=== PATIENT | male | born 1955 | race Caucasian/White ===

== ENCOUNTER 2018-09-21 17:59 | Emergency (ER) | payer OTHER ==
[~2018-09-21] VITALS: Ht 188 cm; Wt 109.3 kg
[~2018-09-21 17:59] MED LIST: ASPI-630 PO; LOSA25TA PO; NEBI5TAB2 PO; diavan PO
--- NOTE | 2018-09-21 18:04 | ED.ADGEN ---
Past History Past Medical History: Hypertension, Other Past Surgical History: Other Alcohol Use: Rarely Drug Use: None Adult General Chief Complaint Chief Complaint ".. I was out in the yard a little today.. and I ve had this before... it is some kind of allergic reaction... I usually need a course of steroids..." HPI HPI Patient is a 63 year old male who presents with above hx and complaints allergy reaction after working in yards. Pt. has acute periorbital edema. Pt. does not remember any specific allergen getting into right eye. No visual changes. But does have significant purulent or swelling and some areas of skin appears to be developing hives. Normally follows at [place] for care. Patient states in the past when he developed these type allergies he usually required steroids. Patient has history of recent travel. No specific ill contacts. No history immunosuppression. Review of Systems Review of Systems Constitutional: Denies fever or chills [] Eyes: Denies change in visual acuity, redness, or eye pain []periorbital swelling left HENT: Denies nasal congestion or sore throat [] Respiratory: Denies cough or shortness of breath [] Cardiovascular: No additional information not addressed in HPI [] GI: Denies abdominal pain, nausea, vomiting, bloody stools or diarrhea [] : Denies dysuria or hematuria [] Musculoskeletal: Denies back pain or joint pain [] Integument: Denies rash or skin lesions [] Neurologic: Denies headache, focal weakness or sensory changes [] Endocrine: Denies polyuria or polydipsia [] All other systems were reviewed and found to be within normal limits, except as documented in this note. Family History Family History Noncontributory Current Medications Current Medications Current Medications Medications (Trade) Dose Ordered Sig/[place] Start Time Stop Time Status Last Admin Dose Admin Famotidine (Pepcid) 20 mg 1X ONCE 09/21/18 18:30 09/21/18 18:31 DC 09/21/18 18:38 20 MG Methylprednisolone Acetate (DEPO-Medrol IM) 40 mg 1X ONCE 09/21/18 18:30 09/21/18 18:31 DC 09/21/18 18:41 40 MG Allergies Allergies Allergies Coded Allergies Type Severity Reaction Last Updated Verified No Known Drug Allergies 03/06/14 No Physical Exam Physical Exam Constitutional: Well developed, well nourished, no acute distress, non-toxic appearance. [] HENT: Normocephalic, atraumatic, bilateral external ears normal, oropharynx moist, no oral exudates, nose normal. [] Eyes: PERRLA, EOMI, conjunctiva normal, no discharge. []Periorbital swelling lef t eye- hive like edema and erythema Neck: Normal range of motion, no tenderness, supple, no stridor. [] Cardiovascular:Heart rate regular rhythm, no murmur [] Lungs & Thorax: Bilateral breath sounds clear to auscultation [] Abdomen: Bowel sounds normal, soft, no tenderness, no masses, no pulsatile masses. [] Skin: Warm, dry, no erythema, no rash. [] Back: No tenderness, no CVA tenderness. [] Extremities: No tenderness, no cyanosis, no clubbing, ROM intact, no edema. [] Neurologic: Alert and oriented X 3, normal motor function, normal sensory function, no focal deficits noted. [] Psychologic: Affect normal, judgement normal, mood normal. [] Current Patient Data Vital Signs Vital Signs Date Time Temp Pulse Resp B/P (MAP) Pulse Ox O2 Delivery O2 Flow Rate FiO2 09/21/18 18:46 50 18 146/107 (120) 98 Room Air 09/21/18 18:17 97.8 EKG EKG [] Radiology/Procedures Radiology/Procedures [] Course & Med Decision Making Course & Med Decision Making Pertinent Labs and Imaging studies reviewed. (See chart for details). Use ice packs. Patient to take Benadryl 25-50 mg 4 times a day. Patient take Zantac twice a day. Patient patient attempted to find the allergy or caused swelling. Patient follow-up primary care. Patient return if any concerns. [] Final Impression Final Impression 1. Lt. Periorbital Edema- allergic reaction[] Dragon Disclaimer Dragon Disclaimer This electronic medical record was generated, in whole or in part, using a voice recognition dictation system. Discharge Summary Visit Information Final Diagnosis Problems Medical Problems: (1) Allergic reaction Status: Acute Brief Hospital Course Allergies Allergies Coded Allergies Type Severity Reaction Last Updated Verified No Known Drug Allergies 03/06/14 No Vital Signs Vital Signs Date Time Temp Pulse Resp B/P (MAP) Pulse Ox O2 Delivery O2 Flow Rate FiO2 09/21/18 18:46 50 18 146/107 (120) 98 Room Air 09/21/18 18:17 97.8 Brief Hospital Course Mr. Carmen is a 63 old male who presented with Lt periorbital edema, hives. Discharge Information Condition at Discharge: Stable Disposition/Orders: D/C to Home Dischare Medications Current Medications Famotidine (Pepcid) 20 mg 1X ONCE PO Last administered on 09/21/18at 18:38; Admin Dose 20 MG; Start 09/21/18 at 18:30; Stop 09/21/18 at 18:31; Status DC Methylprednisolone Acetate (DEPO-Medrol IM) 40 mg 1X ONCE IM Last administered on 09/21/18at 18:41; Admin Dose 40 MG; Start 09/21/18 at 18:30; Stop 09/21/18 at 18:31; Status DC Active Scripts Active Zantac (Ranitidine Hcl) 300 Mg Tablet 300 Mg PO BID 10 Days Benadryl (Diphenhydramine Hcl) 25 Mg Capsule 25 Mg PO QID Reported [diavan] 320 Mg PO DAILY Bystolic (Nebivolol Hcl) 5 Mg Tablet 1 Tab PO DAILY Aspirin 81 Mg Tab.chew 1 Tab PO DAILY Dragon Disclaimer This chart was dictated in whole or in part using Voice Recognition software in a busy, high-work load, and often noisy Emergency Department environment. It may contain unintended and wholly unrecognized errors or omissions. KAYLEE STARK MD Sep 21, 2018 18:04
[2018-09-21] MEDS ORDERED: DIPH25CA58 PO (18:22)
[2018-09-21] MEDS ORDERED: RANI300T3 PO (18:22)
[2018-09-21] MEDS ORDERED: methylPREDNISolone ACETATE 40 MG/ML VIAL. IM ONE (18:30)
[2018-09-21] MEDS ORDERED: FAMOTIDINE 20 MG TABLET PO ONE (18:30)
[2018-09-21 18:46] VITALS: BP 146/107
== END 2018-09-21 18:46 | disposition home or self-care (01) ==
LOC: ER 17:59
DX: T78.40XA Allergy, unspecified, initial encounter (principal); H05.222 Edema of left orbit; I10 Essential (primary) hypertension; X58.XXXA Exposure to other specified factors, initial encounter
CPT/HCPCS: 96372; 99283; J1030

== ENCOUNTER → 2018-12-20 | Outpatient (CLI) | payer OTHER ==
[~2018-12-20] MED LIST changes: +DIPH25CA58 PO; +IOHEXOL 240 MG/ML 50ML VIAL. PO ONE; +IOHEXOL 300 MG/ML 75 ML VIAL. IV ONE; +RANI300T3 PO
--- NOTE | 2018-12-20 10:59 | RAD ---
PQRS Compliance Statement: One or more of the following individualized dose reduction techniques were utilized for this examination: 1. Automated exposure control 2. Adjustment of the mA and/or kV according to patient size 3. Use of iterative reconstruction technique CT abdomen/pelvis without contrast 12/20/2018 9:19 AM INDICATION: Renal mass COMPARISON: CT chest 03/06/2014 TECHNIQUE: Multiple axial CT images of the abdomen and pelvis were obtained with intravenous contrast. Coronal and sagittal reformats are provided. FINDINGS: There is a 9.5 mm solid noncalcified pulmonary nodule in the medial left lower lobe (series 2, image 12). Heart size is within normal limits. There is diffuse hepatic steatosis. Focal area of high attenuation along the gallbladder fossa may represent an area of focal fatty sparing. Spleen, bilateral adrenal glands and pancreas are normal in appearance. Cholelithiasis. Portal venous system is patent. Normal aorta is normal in course and caliber with mild calcified atheromatous plaque. No pathologically enlarged abdominal or pelvic lymph nodes are identified. There is a small fat-containing right inguinal hernia containing the appendix. Appendix is not inflamed. Appendicolith is noted in the distal tip measuring 4 mm. Small amount of fluid is noted in the left inguinal canal. Small and large bowel are normal in caliber. No bowel obstruction or inflammation. Opacified bowel loops since her normal mucosal fold pattern. The kidneys enhance symmetrically. There is no suspicious renal mass. There is no hydronephrosis. There are no suspected calculi within the kidneys, ureters or urinary bladder. There is an 18 mm simple cyst in the lateral interpolar left kidney. Additional 6 mm hypodensity is too small to characterize. Renal collecting systems appear intact. Urinary bladder is within normal limits given degree of distention. Prostate is mildly enlarged measuring 5.9 x 4.2 cm in transaxial dimensions. No suspicious osseous abnormality is identified. Mild to moderate degenerative disc disease noted at L4-L5 and L5-S1. IMPRESSION: 1. There is a 9.5 mm solid noncalcified pulmonary nodule in the medial left lower lobe. This finding is indeterminate and 3 month follow-up chest CT is recommended to assess stability. Findings may be too small to characterize by PET/CT. 2. No suspicious renal mass is visualized. There is an 18 mm simple cyst in the lateral interpolar left kidney. There is a 6 mm hypodensity in the superior pole left kidney which is too small to characterize. Follow up ultrasound or renal mass protocol CT may be of benefit in 6 months. Electronically signed by: Kelsey Miner MD (12/20/2018 10:56 AM) [facility]
== END | disposition home or self-care (01) ==
LOC: CT 09:11
PROVIDERS: ATTEND Urology
DX: N28.1 Cyst of kidney, acquired (principal); R91.1 Solitary pulmonary nodule; M51.36 Other intervertebral disc degeneration, lumbar region; M51.37 Other intervertebral disc degeneration, lumbosacral region
CPT/HCPCS: 74177; Q9966; Q9967

== ENCOUNTER → 2019-08-05 | Outpatient (CLI) | payer MEDICARE, OTHER ==
[~2019-08-05] MED LIST changes: -IOHEXOL 240 MG/ML 50ML VIAL. PO ONE
[2019-08-05 09:37] LABS: CREATININE 1.3 mg/dL (0.7-1.3); GFR 55.4
--- NOTE | 2019-08-05 10:16 | RAD ---
CT chest with contrast PQRS statement: CT scans at this facility use dose reduction including either automated exposure control, iterative reconstructions, and /or weight based radiation dosing via mA and kV modification when appropriate to reduce radiation dose to as low as reasonably achievable. Contrast: 60 mL Omnipaque 300 intravenous contrast. HISTORY: Thoracic aortic aneurysm. Aortic root diameter monitoring. COMPARISON: CT chest without contrast June 15, 2018 and priors. FINDINGS: On coronal reconstructions the approximate aortic root diameter of the current exam is 4.2 cm somewhat degraded by artifact motion reconstruction artifact, on the prior study the approximate diameter was also 4.2 cm. The tubular ascending aorta diameter is aneurysmal measuring 4.5 cm, previously measured 4.2 cm. Aortic arch diameter currently 3.4 cm, previously 3.2 cm. Descending aorta diameter currently 3.0 cm, previously 2.8 cm. Calcified plaque descending thoracic aorta. No thoracic aortic dissection evident. Heart size normal. There is right coronary calcified plaque. Pulmonary vessels and esophagus are unremarkable. No enlarged adenopathy in the chest. Small gallstones. Exophytic 1.5 cm fluid density left renal cyst. Hypodense liver likely fatty. Sequela of thoracic degenerative disc disease. Small calcified granulomas in the chest. Left lower lobe posterior of the left ventricle demonstrates a 6 mm solid nodules somewhat obscured by motion artifact image 90, stable. Right lower lobe medial solid 10 mm nodule image 73 previously measured 8 mm and 2015, the slight differences most may be related to different axial reconstructions slice thicknesses between studies, although appears to measure larger both in the axial and coronal reconstructions. No new nodules evident. 4 mm nodule or lymph node right major fissure stable image 69. No pleural effusions. IMPRESSION: 1. No acute process. 2. Mild dilation of the aortic root and fusiform aneurysm of the ascending thoracic aorta as described above. 3. Right lower lobe 10 mm solid pulmonary nodule measures slightly larger compared imaging in 2015 when it previously measured 8 mm as described above. Follow-up CT imaging in 6 months given this potential mild interval change may be of benefit. 4. Other smaller solid pulmonary nodules are stable from 2015 and are considered benign. Electronically signed by: Torsten Betancur MD (08/05/2019 10:13 AM) [id number]
== END | disposition home or self-care (01) ==
LOC: CT 08:54
PROVIDERS: ATTEND Nurse Practitioner
DX: I71.2 Thoracic aortic aneurysm, without rupture (principal); R91.8 Other nonspecific abnormal finding of lung field; I70.0 Atherosclerosis of aorta; J84.10 Pulmonary fibrosis, unspecified; I25.10 Atherosclerotic heart disease of native coronary artery without angina pectoris; K80.20 Calculus of gallbladder without cholecystitis without obstruction; N28.1 Cyst of kidney, acquired
CPT/HCPCS: 36415; 71260; 82565; Q9967